=== PATIENT | male | born 1960 | race Caucasian/White ===

== ENCOUNTER 2019-10-27 09:19 | Emergency (ER) | payer BC ==
[2019-10-27 09:37] VITALS: BP 148/72
--- NOTE | 2019-10-27 09:46 | UC ---
Throat Pain/Nasal Teo HPI - HPI Summary HPI Summary: 59-year-old male who has had head congestion and cold symptoms for greater than 1 week. He states yesterday and today he's had increased sinus pressure, postnasal drainage and increasing congestion. He denies any fever or chills. - History of Current Complaint Chief Complaint: UCGeneralIllness Stated Complaint: SINUS COMPLAINT Time Seen by Provider: 10/27/19 09:25 Hx Obtained From: Patient Onset/Duration: Gradual Onset Severity: Mild Pain Intensity: 3 Cough: Nonproductive Associated Signs & Symptoms: Positive: Sinus Discomfort, Nasal Discharge - Allergies/Home Medications Allergies/Adverse Reactions: Allergies Allergy/AdvReac Type Severity Reaction Status Date / Time erythromycin base Allergy Severe Hives Verified 10/27/19 09:35 Home Medications: Home Medications Lovastatin 10 mg PO DAILY 10/27/19 [History Confirmed 10/27/19] PMH/Surg Hx/FS Hx/Imm Hx Previously Healthy: Yes GI/ History: Gastroesophageal Reflux Neurological History: Migraine - Surgical History Surgical History: Yes Surgery Procedure, Year, and Place: [facility]. Hernia repair - Family History Known Family History: Positive: Respiratory Disease Negative: Diabetes - Social History Alcohol Use: Occasionally Substance Use Type: None Smoking Status (MU): Never Smoked Tobacco - Immunization History Most Recent Influenza Vaccination: July 2016 Review of Systems All Other Systems Reviewed And Are Negative: Yes ENT: Positive: Nasal Discharge - Yellowish-green nasal coryza., Sinus Congestion , Sinus Pain/Tenderness Respiratory: Positive: Cough - Occasional nonproductive cough mostly associated with postnasal drainage. Is Patient Immunocompromised?: No Physical Exam Triage Information Reviewed: Yes Appearance: Well-Appearing, No Pain Distress, Well-Nourished Vital Signs: Initial Vital Signs Temp 97.9 F 10/27/19 09:33 Pulse 69 10/27/19 09:33 Resp 16 10/27/19 09:33 BP 148/72 10/27/19 09:33 Pulse Ox 100 10/27/19 09:33 Vital Signs Reviewed: Yes Eyes: Positive: Conjunctiva Clear ENT: Positive: Hearing grossly normal, Pharynx normal - Purulent yellow postnasal drainage., Nasal congestion - Purulent yellow nasal coryza, Nasal drainage, TMs normal, Sinus tenderness - Tender over the left maxillary and frontal sinuses., Uvula midline Neck: Positive: Supple, Nontender, No Lymphadenopathy Respiratory: Positive: Lungs clear, Normal breath sounds, No respiratory distress, No accessory muscle use Cardiovascular: Positive: RRR, No Murmur, Pulses Normal, Brisk Capillary Refill Musculoskeletal Exam: Normal Neurological Exam: Normal Psychological Exam: Normal Skin Exam: Normal Throat Pain/Nasal Course/Dx - Course Course Of Treatment: Patient is comfortable here. I'm going to treat him for a sinus infection with Augmentin. - Differential Dx/Diagnosis Provider Diagnosis: Sinusitis Discharge ED - Sign-Out/Discharge Documenting (check all that apply): Patient Departure All imaging exams completed and their final reports reviewed: No Studies - Discharge Plan Condition: Good Disposition: HOME Prescriptions: Amoxicillin/Clavulanate TAB* [Augmentin TAB 875*] 875 mg PO BID 10 Days #20 tab Patient Education Materials: Sinusitis (ED) Referrals: Lakeisha Bonilla MD [Primary Care Provider] - Additional Instructions: Increase fluids, take the antibiotic with food. Follow-up with your primary care provider in 4 or 5 days if no improvement. - Billing Disposition and Condition Condition: GOOD Disposition: Home
--- OUTSIDE RECORDS SUMMARY | 2019-10-29 15:58 | XMS REPORT | Continuity of Care Document ---
:1960 External Reference #:[id number] Author Name Lakeisha Bonilla MD Address [address] [place] [id number] Problems Active Problems Provider Date Benign essential hypertension Lakeisha Bonilla MD Onset: 01/27/2017 Peptic reflux disease Lakeisha Bonilla MD Onset: 01/27/2017 Gastroesophageal reflux disease Lakeisha Bonilla MD Onset: 07/01/2019 FH: Myocardial infarct in 1st degree male Lakeisha Bonilla MD Onset: 2018 relative <55 years Family history of diabetes mellitus Lakeisha Bonilla MD Onset: 12/28/2018 Benign neoplasm of colon Lakeisha Bonilla MD Onset: 12/28/2018 Mild intermittent asthma Lakeisha Bonilla MD Onset: 12/28/2018 Mixed hyperlipidemia Lakeisha Bonilla MD Onset: 12/28/2018 Social History Type Date Description Comments Sex Unknown ETOH Use Occasionally consumes alcohol Tobacco Use Start: Unknown Patient has never smoked Recreational Drug Use Denies Drug Use Smoking Status Reviewed: 12/28/18 Patient has never smoked Exercise Type/Frequency Exercises regularly running, basketball, hiking, biking; 01/27/17 counselled 150min per week, 18071 steps per day [facility] Allergies, Adverse Reactions, Alerts Active Allergies Reaction Severity Comments Date Erythromycin Hives 01/27/2017 Hay Fever Respiratory 01/27/2017 Dust Respiratory 01/27/2017 Pneumovax Hives and swelling at site 01/27/2017 Medications Active Medications SIG Qnty Indications Ordering Provider Date Naproxen 1 by mouth twice 60tabs G43.111 Lakeisha Bonilla, 10/23/2019 500mg Tablets a day with food Magnesium 1 by mouth every 90tabs G43.111 Sabrina Bonillan, 10/23/2019 400mg Tablets day Vitamin B-2 400mg by mouth 360tabs G43.111 Lakeisha Bonilla, 10/23/2019 100mg daily with food Tablets Lisinopril 1 by mouth daily 30tabs I10 BonillaLakeisha goodman, 10/23/2019 10mg Tablets in the morning Atorvastatin Calcium 1 by mouth every 30tabs E78.2 Lakeisha Bonilla, 12/28 day MD 10mg Tablets Aspirin Adult Low 1 by mouth every E78.2 Lakeisha Bonilla, 02/04/2017 Dose day with food 81mg Tablets DR Ga HFA 2 puffs four 1units J45.20 Lakeisha Bonilla, 01/27/2017 times a day as 108(90Base) mcg/Act needed Aerosol Multivitamin Men 1 by mouth every Unknown day Tablets OTC Allergy Meds qd Unknown Immunizations CPT Code Status Date Vaccine Reaction Lot # [id number] Given 07/28/2019 Fluzone Highdose Age 65 And given at work per pt Over Preservative & Antibiotic Free 88819 Given 10/18/2018 Influenza Vac, Quadrivalent, Split, 0.5mL [place] [address] Given 10/27/2017 Tdap (Adacel) Ages 7 And Im inj completed, Pt [id number] Above Only tolerated well 80217 Given 08/21/2017 Influenza Virus Vaccine,Quadrivalent,Split,P reserv Free, 0.5mL,[place] [address] Given 08/01/2016 Influenza Virus Vaccine,Quadrivalent,Split,P reserv Free, 0.5mL,[place] [address] Given 10/03/2009 Pneumococcal 23 Immunization Pt's records Adult Or Immunosuppressed Patient 75877 Given 11/27/1999 Immunization Td 7 Yrs Or Pt's records Older 59294 Given 08/23/1993 Pneumococcal 23 Immunization Pt's records Adult Or Immunosuppressed Patient Q2039 Ordered 08/27/2017 Flu Vaccine NOS Q2039 Refused 07/01/2019 Flu Vaccine NOS will get in fall 47042 Refused 07/01/2019 Shingrix (Shingles) Zoster Vaccine will get at pharmacy HZV, Recombinant, Subunit, Adj Vital Signs Date Vital Result Comment 10/23/2019 11:47am Body Temperature 97.2 F Weight 196.00 lb Heart Rate 61 /min BP Systolic 148 mmHg BP Diastolic 90 mmHg Respiratory Rate 18 /min Height 66.5 inches 5'6.50" O2 % BldC Oximetry 98 % ra BMI (Body Mass Index) 31.2 kg/m2 07/02/2019 3:16pm Body Temperature 97.6 F Weight 186.00 lb Heart Rate 60 /min BP Systolic 120 mmHg BP Diastolic 78 mmHg Respiratory Rate 16 /min Height 66.5 inches 5'6.50" O2 % BldC Oximetry 99 % ra BMI (Body Mass Index) 29.6 kg/m2 Results Test Acquired Date Facility Test Result H/L Range Note Laboratory test finding 10/23/2019 [facility] <pending> CRP (C-Reactive) <pending> Laboratory test 07/02/2019 [facility] Urine Culture Microbiology res 1, 2 finding <SEE NOTE> Urine Microscopic 07/02/2019 [facility] Urine WBC 0.7 [HPF] (0-8) Urine RBC 2.3 [HPF] (0-3) Epithelial Cells NEGATIVE [HPF] (Neg) Bacteria NEGATIVE [HPF] (Neg) Hyaline Casts 4.5 [LPF] (0-5) Comprehensive Met Panel-[facility] 06/27/2019 [facility] Sodium 138 mmol/L 135- 146 3, 4 Potassium 4.3 mmol/L 3.5-5.2 Chloride# 103 mmol/L 97-110 5 Carbon Dioxide 29 mmol/L 24-34 Calcium 9.2 mg/dL 8.5-10.5 6 Glucose 91 mg/dL 70-105 BUN 15 mg/dL 6-26 Creatinine 1.2 mg/dL 0.5-1.4 Total Protein 6.6 g/dL 6.0-8.0 Albumin 4.1 g/dL 3.6-4.9 Globulin 2.5 g/dL 2.0-3.5 A/G Ratio 1.6 Ratio 1.0-2.2 Total Bilirubin 0.7 mg/dL 0.1-1.3 Alkaline Phosphatase 41 U/L 24-140 Alt 15 U/L 3-42 Ast 24 U/L 8-42 Anion Gap 6 mmol/L 5-15 7 Female Egfr 50 Low >60 8 Male Egfr 67 >60 9 Laboratory test finding 06/27/2019 [facility] CPK 230 U/L High 12-199 Lipid 06/27/2019 [facility] Cholesterol 148 mg/dL 50-199 Triglycerides 95 mg/dL 30-200 HDL 55 mg/dL 29-71 10 Chol/ HDL Ratio 2.7 ratio Low 4.0-6.7 VLDL 19 mg/dL 2-29 LDL (Calc) 74 mg/dL 20-99 11 Laboratory test finding 06/27/2019 [facility] PSA 7.290 ng/mL High 0.000- 4.000 12 1 not teated, consider prostatitis 2 Microbiology results SOURCE Clean Catch Midstream FINAL RESULT No growth 3 before vsiit 06/2019 4 Updated reference range on new analyzer 5 Updated reference range on new analyzer 6 Updated reference range 03-27-2019 7 Updated Reference Range 8 Concerning GFR Guidelines for Americans: Normal function or mild renal disease, if clinically at risk: >/= 60 mL/min Moderately decreased: 30-59 Severely decreased: 15-29 Renal failure: <15 There is reduced accuracy above 60ml/min/1.73 m squared, but the numeric value may be clinically useful in the near 60 range 9 Concerning GFR Guidelines: Normal function or mild renal disease, if clinically at risk: >/= 60 mL/min Moderately decreased: 30-59 Severely decreased: 15-29 Renal failure: <15 There is reduced accuracy above 60ml/min/1.73 m squared, but the numeric value may be clinically useful in the near 60 range Glomerular Filtration Rate (GFR) is estimated based on the CKD-EPI equation, which assumes a steady state for creatinine as recommended by the National Kidney Disease Education Program in conjunction with the National Institutes of Health and the National Kidney Foundation. Clinical conditions in which it may be necessary to measure GFR by using clearance methods include extremes of age and body size, severe malnutrition or obesity, diseases of skeletal muscle, paraplegia or quadriplegia, vegetarian diet, rapidly changing kidney function, and calculation of the dose of potentially toxic drugs that are excreted by the kidneys. 10 Per NCEP ATP III Guidelines: Results lower than 40 mg/dL are suggestive of increased risk for coronary artery disease. Results > or = to 60 mg/dL are considered a negative risk factor. 11 Per NCEP ATP III Guidelines: Normal Population <130 Patients with medical conditions: CHD/DM Optimal: <100 Borderline high: 130-159 High: 160-189 Very high: >189 12 Beginning 01/22/07 PSA values assayed at [employer] uses chemiluminescence methodology manufactured by [employer] for use on the DXI analyzer. Values obtained with different assay methods or kits can not be used interchangeably. Serum PSA measurement is not an absolute test for malignancy. The PSA value should be used in conjunction with information available from clinical evaluation and other diagnostic procedures. Procedures Date Code Description Status 01/29/2016 55760333 Colonoscopy Completed Medical Devices Description No Information Available Encounters Type Date Location Provider Dx Diagnosis Office Visit 07/02/2019 [facility] Lakeisha Bonilla MD R97.20 Elevated prostate 3:15p specific antigen [PSA] N40.0 Benign prostatic hyperplasia without lower urinry tract symp K60.0 Acute anal fissure K64.5 Perianal venous thrombosis N43.2 Other hydrocele M65.311 Trigger thumb, RIGHT thumb Z68.29 Body mass index (BMI) 29.0-29.9, adult Office Visit 07/01/2019 2:30p [facility] Lakeisha Bonilla MD M65.311 Trigger thumb, RIGHT thumb I10 Essential (primary) hypertension E78.2 Mixed hyperlipidemia K21.9 Gastro-esophageal reflux disease without esophagitis J45.20 Mild intermittent asthma, uncomplicated R97.20 Elevated prostate specific antigen [PSA] Z68.29 Body mass index (BMI) 29.0-29.9, adult Assessments Date Code Description Provider 10/23/2019 G43.111 Migraine with aura, intractable, with status Lakeisha Bonilla MD migrainosus 10/23/2019 M54.2 Cervicalgia Lakeisha Bonilla MD 10/23/2019 I10 Essential (primary) hypertension Lakeisha Bonilla MD 10/23/2019 E66.9 Obesity, unspecified Lakeisha Bonilla MD 10/23/2019 H61.21 Impacted cerumen, RIGHT ear Lakeisha Bonilla MD 10/23/2019 H83.09 Labyrinthitis, unspecified ear Lakeisha Bonilla MD 10/23/2019 Z68.31 Body mass index (BMI) 31.0-31.9, adult Lakeisha Bonilla MD 10/23/2019 G43.111 Migraine with aura, intractable, with status Schedule, Laboratory migrainosus 10/23/2019 M54.2 Cervicalgia Schedule, Laboratory 07/02/2019 R97.20 Elevated prostate specific antigen [PSA] Lakeisha Bonilla MD 07/02/2019 N40.0 Benign prostatic hyperplasia without lower Lakeisha Bonilla MD urinary tract symptoms 07/02/2019 K60.0 Acute anal fissure Lakeisha Bonilla MD 07/02/2019 K64.5 Perianal venous thrombosis Lakeisha Bonilla MD 07/02/2019 N43.2 Other hydrocele Lakeisha Bonilla MD 07/02/2019 M65.311 Trigger thumb, RIGHT thumb Lakeisha Bonilla MD 07/02/2019 Z68.29 Body mass index (BMI) 29.0-29.9, adult Lakeisha Bonilla MD 07/02/2019 R97.20 Elevated prostate specific antigen [PSA] [facility] 07/01/2019 M65.311 Trigger thumb, RIGHT thumb Lakeisha Bonilla MD 07/01/2019 I10 Essential (primary) hypertension Lakeisha Bonilla MD 07/01/2019 E78.2 Mixed hyperlipidemia Lakeisha Bonilla MD 07/01/2019 K21.9 Gastro-esophageal reflux disease without Lakeisha Bonilla MD esophagitis 07/01/2019 J45.20 Mild intermittent asthma, uncomplicated Lakeisha Bonilla MD 07/01/2019 R97.20 Elevated prostate specific antigen [PSA] Lakeisha Bonilla MD 07/01/2019 Z68.29 Body mass index (BMI) 29.0-29.9, adult Lakeisha Bonilla MD 06/27/2019 I10 Essential (primary) hypertension Lakeisha Bonilla MD 06/27/2019 I10 Essential (primary) hypertension Schedule, Laboratory 06/27/2019 E78.2 Mixed hyperlipidemia Lakeisha Bonilla MD 06/27/2019 E78.2 Mixed hyperlipidemia Schedule, Laboratory 06/27/2019 Z12.5 Encounter for screening for malignant Lakeisha Bonilla MD neoplasm of prostate 06/27/2019 Z12.5 Encounter for screening for malignant Schedule, Laboratory neoplasm of prostate 06/27/2019 I10 Essential (primary) hypertension [facility] 06/27/2019 E78.2 Mixed hyperlipidemia [facility] 06/27/2019 Z12.5 Encounter for screening for malignant [facility] neoplasm of prostate Plan of Treatment Future Appointment(s):11/01/2019 4:15 pm - Lakeisha Bonilla MD at [facility]2019 10:30 am - Schedule, Laboratory at [facility]01/07/2020 3:30 pm - Lakeisha Bonilla MD at [facility]10/23/2019 - Lakeisha Bonilla MDG43.111 Migraine with aura, intractable, with status migrainosusNew Medication:Naproxen 500 mg - 1 by mouth twice a day with foodMagnesium 400 mg - 1 by mouth every dayVitamin B-2 100 mg - 400mg by mouth daily with foodNew Xrays:MRI Brain Without Contrast, Scheduled : 10/28/19[facility] Brain, Scheduled: 10/28/19Comments:migraine, occurring for several days, with no nausea and vomiting, witjh aura, no neurologic deficits on exam, does have right ear pressure, dizziness and HTN diagnosis Recommend check mri of brain and mra of brain to help make sure there is no aneurysm or tumor. check labs to look fo rinfection , inflammation, other causes naproxen 500mg twice daily with food, watch for stomach upset. May take tylenol. Discussed imitrex/sumatriptan, cautioned risks for hot flashes, chest pain, etc , he declines. Recommend magnesium 400-500mg daily ( 2 doses today, then daily) . (watch for diarrhea if takes too much) Recommend B2 400mg daily with food. all with food/meat/protein.seek care for worsening stiff neck,fever, new neuro sxs, worsening dizziness, lack of improvement in 24-48 hours, any new concerns.Follow up:labs today; MRI MRA sarah ; fu 1 week headache and imaging mri /mra and fu htn oc15 ( make sure appt is at least 3 days after imaging please) M54.2 CervicalgiaNew Xrays:MRI Brain Without Contrast, Scheduled: 10/28/19[facility] Brain, Scheduled: 10/28/19I10 Essential (primary) hypertensionNew Medication: Lisinopril 10 mg - 1 by mouth daily in the morningNew Xrays:MRI Brain Without Contrast, Scheduled: 10/28/19[facility] Brain, Scheduled: 10/28/19Comments:bp upincrease to 10mg lisinopril watch the salt intake, avoid alcohol while not feeling well recheckbps and fu , call if bps are regularly over 150/100E66.9 Obesity, unspecifiedComments:continue to work on diet, exercise, weight lossH61.21 Impacted cerumen, RIGHT earH83.09 Labyrinthitis, unspecified earComments:Your presentation is suggests viral labyrinthitis. Please call if headache is peristant, ear pain, fever, or hearing loss develop. Call if sxs lasts > 4 weeks or seem to be severe or do not begin toimprove within 2 weeks. or if there is hearing loss, speech problems or focal neurologic problems tosuggest stroke, to ERFollow up:Followup:. (Follow up)Z68.31 Body mass index (BMI) 31.0-31.9, adultComments:recommend reduced calorie diet and healthy diet and regular exercise to help with weight loss patient continues to work on reduced calorie diet and regular exercise Functional Status Description No Information Available Mental Status Description No Information Available Referrals Refer to Reason for Referral Status Appt Date Scott Gold DR 59 yo psa 7+, and has right hydrocele, bout of Closed perineum pain after a bike ride a few weeks ago, ho right hernia repair. prostate not tender on exam so did not treat for prostatitis faxed 07/02/19 [facility] spoke to patient and he is aware of appt date and time 07/02/19 [facility] [address] [place] [address]/ [address] [address] [phone] Saw Davison MD 59yo with trigger right thumb, turns out xrays show Closed 08/13/2019 an old chip fracture, is surgery indicated? faxed order 07/02/19 [facility] they contact patient and scheduled with patient after referral is received REFERRAL NOT RECIEVED - REFAXING FRANCESCA 07/09 called and spoke to key - she said patient can just call and schedule his appt himself. i left a message on his home phone with this info francesca 07/17 scheduled with office on phone, andLM on patient patients cell phone with date and time of appt, also mailed 07/25/[address] [facility] [address] [place], [place] [address] [phone]
== END 2019-10-27 09:54 | disposition home or self-care (01) ==
LOC: UCCORT 09:19
DX: J32.9 Chronic sinusitis, unspecified (principal); R05 Cough; Z88.1 Allergy status to other antibiotic agents
CPT/HCPCS: 99212; G0463

== ENCOUNTER 2019-12-04 07:06 | Emergency (ER) | payer BC ==
--- OUTSIDE RECORDS SUMMARY | 2019-12-04 07:15 | XMS REPORT | Continuity of Care Document ---
:1960 External Reference #:[id number] Author Name Lakeisha Bonilla MD Address [address] [place] [id number] Problems Active Problems Provider Date Benign essential hypertension Lakeisha Bonilla MD Onset: 01/27/2017 Peptic reflux disease Lakeisha Bonilla MD Onset: 01/27/2017 Migraine without aura, not refractory Lakeisha Bonilla MD Onset: 11/01/2019 Gastroesophageal reflux disease Lakeisha Bonilla MD Onset: [...] hiking, biking; 01/27/17 counselled 150min per week, 75465 steps per day [facility] Allergies, Adverse Reactions, Alerts Active Allergies Reaction Severity Comments Date Erythromycin Hives 01/27/2017 Hay Fever Respiratory 01/27/2017 Dust Respiratory 01/27/2017 Pneumovax Hives and swelling at site 01/27/2017 Medications Active Medications SIG Qnty Indications Ordering Provider Date Amoxicillin/Clavulanat Twice Daily 20tabs J01.90 Unknown 10/27/2019 e Potassium 875-125mg Tablets Naproxen 1 by mouth 60tabs G43.111 Lakeisha Bonilla, 10/23/2019 500mg Tablets twice a day with food Magnesium 1 by mouth 90tabs G43.111 Lakeisha Bonilla, 10/23/2019 400mg Tablets every day G43.009 Vitamin B-2 400mg by mouth 360tabs G43.111 Lakeisha Bonilla MD 10/23/2019 100mg daily with food Tablets G43.009 Lisinopril 1 by mouth daily 30tabs I10 Lakeisha Bonilla MD 10/23/2019 10mg Tablets in the morning Atorvastatin Calcium 1 by mouth every 30tabs E78.2 Lakeisha Bonilla MD 10mg day Tablets Aspirin Adult Low Dose 1 by mouth every E78.2 Lakeisha Bonilla MD 2016 day with food 81mg Tablets DR Sury CARBALLO 2 puffs four 1units J45.20 Lakeisha Bonilla MD 01/27/2017 108(90Base) times a day as mcg/Act Aerosol needed Multivitamin Men 1 by mouth every Unknown Tablets day OTC Allergy Meds qd Unknown Immunizations CPT Code Status Date Vaccine Reaction Lot # [id number] Given 07/28/2019 Fluzone Highdose Age 65 And given at work per pt Over Preservative & Antibiotic Free 70042 Given 10/18/2018 Influenza Vac, Quadrivalent, Split, 0.5mL [place] [address] Given 10/27/2017 Tdap (Adacel) Ages 7 And Im inj completed, Pt [id number] Above Only tolerated well 74996 Given 08/21/2017 Influenza Virus Vaccine,Quadrivalent,Split,P reserv Free, 0.5mL,[place] [address] Given 08/01/2016 Influenza Virus Vaccine,Quadrivalent,Split,P reserv Free, 0.5mL,[place] [address] Given 10/03/2009 Pneumococcal 23 Immunization Pt's records Adult Or Immunosuppressed Patient 74862 Given 11/27/1999 Immunization Td 7 Yrs Or Pt's records Older 26931 Given 08/23/1993 Pneumococcal 23 Immunization Pt's records Adult Or Immunosuppressed Patient Q2039 Ordered 08/27/2017 Flu Vaccine NOS Q2039 Refused 07/01/2019 Flu Vaccine NOS will get in fall [address] Refused 07/01/2019 Shingrix (Shingles) Zoster Vaccine will get at pharmacy HZV, Recombinant, Subunit, Adj Vital Signs Date Vital Result Comment 11/01/2019 4:14pm Body Temperature 96.5 F Weight 193.00 lb Heart Rate 85 /min BP Systolic 130 mmHg BP Diastolic 80 mmHg Height 66.5 inches 5'6.50" O2 % BldC Oximetry 96 % ra BMI (Body Mass Index) 30.7 kg/m2 10/23/2019 11:47am Body Temperature 97.2 F Weight 196.00 lb Heart Rate 61 /min BP Systolic 148 mmHg BP Diastolic 90 mmHg Respiratory Rate 18 /min Height 66.5 inches 5'6.50" O2 % BldC Oximetry 98 % ra BMI (Body Mass Index) 31.2 kg/m2 Results Test Acquired Date Facility Test Result H/L Range Note CBC with Auto Diff-[facility] 10/23/2019 [facility] 7.3 K/uL 4.1-11.0 1 RBC 4.36 M/uL Low 4.60-6.10 2 Hemoglobin 14.1 gm/dL 13.5-18.0 3 Hematocrit 40.3 % Low 41.0-53.0 4 MCV 92.3 fL 80.0-95.0 5 MCH 32.2 pg High 27.0-32.0 6 MCHC 34.9 g/dL 32.0-36.0 7 RDW 13.4 % 10.5-14.5 8 PLT Count 249 K/ul 150-400 9 MPV 7.7 FL 7.1-10.7 Neutrophil 61.6 % 35.0-75.0 10 Lymphocyte 19.6 % 16.0-52.0 11 Monocyte 16.2 % High 0.0-8.0 12 Eosinophil 1.9 % 0.0-5.0 Basophil 0.7 % 0.0-4.0 Abs Neutrophils 4.5 K/uL 1.8-7.7 13 Abs Lymphocytes 1.4 K/uL 1.2-4.8 14 Abs Monocytes 1.2 K/uL High 0.0-0.8 15 Abs Eosinophils 0.1 K/uL 0.0-0.5 16 Abs Basophils 0.1 K/uL 0.0-0.2 17 Comprehensive Met Panel[facility] 10/23/2019 [facility] Sodium 139 mmol/L 135- 146 18 Potassium 4.6 mmol/L 3.5-5.2 Chloride# 103 mmol/L 97-110 19 Carbon Dioxide 29 mmol/L 24-34 Calcium 9.0 mg/dL 8.5-10.5 20 Glucose 102 mg/dL 70-105 BUN 10 mg/dL 6-26 Creatinine 1.1 mg/dL 0.5-1.4 Total Protein 6.6 g/dL 6.0-8.0 Albumin 4.3 g/dL 3.6-4.9 Globulin 2.3 g/dL 2.0-3.5 A/G Ratio 1.9 Ratio 1.0-2.2 Total Bilirubin 0.6 mg/dL 0.1-1.3 Alkaline Phosphatase 55 U/L 24-140 Alt 13 U/L 3-42 Ast 17 U/L 8-42 Anion Gap 7 mmol/L 5-15 21 Female Egfr 54 Low >60 22 Male Egfr 72 >60 23 Laboratory test finding 10/23/2019 [facility] Esr 5 mm/hr 0-15 CRP (C-Reactive) inflammation 0.31 mg/dL 0.00-0.75 Laboratory test 07/02/2019 [facility] Urine Culture Microbiology res 24, 25 finding <SEE NOTE> Urine Microscopic 07/02/2019 [facility] Urine WBC 0.7 [HPF] (0-8) Urine RBC 2.3 [HPF] (0-3) Epithelial Cells NEGATIVE [HPF] (Neg) Bacteria NEGATIVE [HPF] (Neg) Hyaline Casts 4.5 [LPF] (0-5) Comprehensive Met Panel[facility] 06/27/2019 [facility] Sodium 138 mmol/L 135- 146 26, 27 Potassium 4.3 mmol/L 3.5-5.2 Chloride# 103 mmol/L 97-110 28 Carbon Dioxide 29 mmol/L 24-34 Calcium 9.2 mg/dL 8.5-10.5 29 Glucose 91 mg/dL 70-105 BUN 15 mg/dL 6-26 Creatinine 1.2 mg/dL 0.5-1.4 Total Protein 6.6 g/dL 6.0-8.0 Albumin 4.1 g/dL 3.6-4.9 Globulin 2.5 g/dL 2.0-3.5 A/G Ratio 1.6 Ratio 1.0-2.2 Total Bilirubin 0.7 mg/dL 0.1-1.3 Alkaline Phosphatase 41 U/L 24-140 Alt 15 U/L 3-42 Ast 24 U/L 8-42 Anion Gap 6 mmol/L 5-15 30 Female Egfr 50 Low >60 31 Male Egfr 67 >60 32 Laboratory test finding 06/27/2019 [facility] CPK 230 U/L High 12-199 Lipid 06/27/2019 [facility] Cholesterol 148 mg/dL 50-199 Triglycerides 95 mg/dL 30-200 HDL 55 mg/dL 29-71 33 Chol/ HDL Ratio 2.7 ratio Low 4.0-6.7 VLDL 19 mg/dL 2-29 LDL (Calc) 74 mg/dL 20-99 34 Laboratory test finding 06/27/2019 [facility] PSA 7.290 ng/mL High 0.000- 4.000 35 1 Updated Reference Range 09/2019 2 Updated Reference Range 09/2019 3 Updated Reference Range 09/2019 4 Updated Reference Range 09/2019 5 Updated Reference Range 09/2019 6 Updated Reference Range 09/2019 7 Updated Reference range 09/2019 8 Updated Reference range 09/2019 9 Updated Reference Range 09/2019 10 Updated Reference Range 09/2019 11 Updated Reference Range 09/2019 12 Updated Reference Range 09/2019 13 Updated Reference Range 09/2019 14 Updated Reference Range 09/2019 15 Updated Reference Range 09/2019 16 Updated Reference Range 09/2019 17 Updated Reference Range 09/2019 18 Updated reference range on new analyzer 19 Updated reference range on new analyzer 20 Updated reference range 03-27-2019 21 Updated Reference Range 22 Concerning GFR Guidelines for Americans: Normal function or mild renal disease, if clinically at risk: >/= 60 mL/min Moderately decreased: 30-59 Severely decreased: 15-29 Renal failure: <15 There is reduced accuracy above 60ml/min/1.73 m squared, but the numeric value may be clinically useful in the near 60 range 23 Concerning GFR Guidelines: Normal function or mild [...] drugs that are excreted by the kidneys. 24 not teated, consider prostatitis 25 Microbiology results SOURCE Clean Catch Midstream FINAL RESULT No growth 26 before vsiit 06/2019 27 Updated reference range on new analyzer 28 Updated reference range on new analyzer 29 Updated reference range 03-27-2019 30 Updated Reference Range 31 Concerning GFR Guidelines for Americans: Normal function or mild renal disease, if clinically at risk: >/= 60 mL/min Moderately decreased: 30-59 Severely decreased: 15-29 Renal failure: <15 There is reduced accuracy above 60ml/min/1.73 m squared, but the numeric value may be clinically useful in the near 60 range 32 Concerning GFR Guidelines: Normal function or mild [...] drugs that are excreted by the kidneys. 33 Per NCEP ATP III Guidelines: Results lower than 40 mg/dL are suggestive of increased risk for coronary artery disease. Results > or = to 60 mg/dL are considered a negative risk factor. 34 Per NCEP ATP III Guidelines: Normal Population <130 Patients with medical conditions: CHD/DM Optimal: <100 Borderline high: 130-159 High: 160-189 Very high: >189 35 Beginning 01/22/07 PSA values assayed at [facility] [employer] uses chemiluminescence methodology manufactured by [employer] for use on the DXI analyzer. Values obtained with different assay methods or kits can not be used interchangeably. Serum PSA measurement is not an absolute test for malignancy. The PSA value should be used in conjunction with information available from clinical evaluation and other diagnostic procedures. Procedures Date Code Description Status 11/01/2019 61978 Measure Blood Oxygen Level Single Determination Completed 01/29/2016 67025266 Colonoscopy Completed Medical Devices Description No Information Available Encounters Type Date Location Provider Dx Diagnosis Office Visit 10/23/2019 [facility] Lakeisha Bonilla, G43.111 Migraine with aura, 11:30a MD intractable, with status migrainosus M54.2 Cervicalgia I10 Essential (primary) hypertension E66.9 Obesity, unspecified H61.21 Impacted cerumen, RIGHT ear H83.09 Labyrinthitis, unspecified ear Z68.31 Body mass index (BMI) 31.0-31.9, adult Office Visit 07/02/2019 3:15p [facility] Lakeisha Bonilla MD R97.20 Elevated prostate specific antigen [PSA] N40.0 Benign prostatic hyperplasia without lower urinry tract symp K60.0 Acute anal fissure K64.5 Perianal venous thrombosis N43.2 Other hydrocele M65.311 Trigger thumb, RIGHT thumb Z68.29 Body mass index (BMI) 29.0-29.9, adult Office Visit 07/01/2019 2:30p [facility] Lakeisha Bonilla MD M65.311 Trigger thumb, RIGHT thumb I10 Essential (primary) hypertension E78.2 Mixed hyperlipidemia K21.9 Gastro-esophageal reflux disease without esophagitis J45.20 Mild intermittent asthma, uncomplicated R97.20 Elevated prostate specific antigen [PSA] Z68.29 Body mass index (BMI) 29.0-29.9, adult Assessments Date Code Description Provider 11/01/2019 J01.90 Acute sinusitis, unspecified Lakeisha Bonilla MD 11/01/2019 G43.009 Migraine without aura, not intractable, Lakeisha Bonilla MD without status migrainosus 11/01/2019 E66.9 Obesity, unspecified Lakeisha Bonilla MD 11/01/2019 Z68.30 Body mass index (BMI) 30.0-30.9, adult Lakeisha Bonilla MD 10/23/2019 G43.111 Migraine with aura, intractable, with status Lakeisha Bonilla MD migrainosus 10/23/2019 G43.111 Migraine with aura, intractable, with status Lakeisha Bonilla MD migrainosus 10/23/2019 M54.2 Cervicalgia Lakeisha Bonilla MD 10/23/2019 M54.2 Cervicalgia Lakeisha Bonilla MD 10/23/2019 [...] Laboratory migrainosus 10/23/2019 M54.2 Cervicalgia Schedule, Laboratory 10/23/2019 G43.111 Migraine with aura, intractable, with status [facility] migrainosus 10/23/2019 M54.2 Cervicalgia [facility] 07/02/2019 R97.20 Elevated prostate specific antigen [PSA] [...] 07/02/2019 R97.20 Elevated prostate specific antigen [PSA] [facility] 07/01/2019 M65.311 Trigger thumb, RIGHT [...] of prostate 06/27/2019 I10 Essential (primary) hypertension [facility] 06/27/2019 E78.2 Mixed [facility] 06/27/2019 Z12.5 Encounter for screening for malignant [facility] neoplasm of prostate Plan of Treatment Future Appointment(s):01/01/2020 10:30 am - Schedule, Laboratory at [facility]2019 3:30 pm - Laekisha Bonilla MD at [facility]11/01/2019 - Lakeisha Bonilla MDJ01.90 Acute sinusitis, unspecifiedComments:Acute sinusitis diagnosed and treated and sxs are much bettercomplete antibioticsseek care for recurrent symptoms.Follow up:followup as [id number] Migraine without aura, not intractable, without status migrainosusComments:Advised patient of new recommendations to try magnesium gluconate 500mg daily and vit b6 200mg dailyto help with prevention of migraines--he is taking now, see if helps. Discussed risks for missed aneurysm, vascular problem. He will monitor for worsening headache patterns, thunder clap headache ( to ER) and call for concerns. He declines MRI, MRA for now, advised that if wants to do has a window to get this done through 11/28/2019.E66.9 Obesity, unspecifiedComments:continue to work on diet, exercise, weight lossZ68.30 Body mass index (BMI) 30.0-30.9, adultComments :recommend reduced calorie intake, healthy eating and regular exercise for weight reduction Functional Status Description No Information Available Mental [...] appt date and time 07/02/19 [facility] [address] [place] [address]/ [address] [address] [phone] Saw Davison MD 59yo with trigger right [...] time of appt, also mailed 07/25/19 [facility] [address], [place] [address] [phone]
[2019-12-04 07:26] VITALS: BP 126/82
--- NOTE | 2019-12-04 08:16 | UC ---
Ear Complaint HPI - HPI Summary HPI Summary: right ear pain x 2 days pain is 4 out of pain , no radiation nothing makes it better or worse, recent hx of cold sx with cough , stuffy / runny nose no fever, no chills , no change in hearing - History of Current Complaint Chief Complaint: UCEar Stated Complaint: EAR PAIN,CONGESTION Time Seen by Provider: 12/04/19 07:16 Hx Obtained From: Patient Onset/Duration: Gradual Onset, Lasting Days - 2, Still Present Severity Initially: Moderate Severity Currently: Moderate Pain Intensity: 2 Pain Scale Used: 0-10 Numeric Aggravating Factors: Nothing Alleviating Factors: Nothing Associated Signs/Symptoms: Positive: URI Symptoms. Negative: Discharge, Hearing Loss, Foreign Body Sensation, Trauma to Ear, Swelling @ - Allergies/Home Medications Allergies/Adverse Reactions: Allergies Allergy/AdvReac Type Severity Reaction Status Date / Time erythromycin base Allergy Severe Hives Verified 12/04/19 07:26 PMH/Surg Hx/FS Hx/Imm Hx Cardiovascular History: Hypertension Respiratory History: Asthma Neurological History: Migraine - Surgical History Surgical History: Yes Surgery Procedure, Year, and Place: [facility] T &A. Hernia repair - Family History Known Family History: Positive: Respiratory Disease Negative: Diabetes - Social History Alcohol Use: Occasionally Substance Use Type: None Smoking Status (MU): Never Smoked Tobacco - Immunization History Most Recent Influenza Vaccination: July 2016 Review of Systems All Other Systems Reviewed And Are Negative: Yes Is Patient Immunocompromised?: No Physical Exam Triage Information Reviewed: Yes Appearance: Well-Appearing, No Pain Distress, Well-Nourished Vital Signs: Initial Vital Signs Temp 98.3 F 12/04/19 07:22 Pulse 70 12/04/19 07:22 Resp 18 12/04/19 07:22 BP 126/82 12/04/19 07:22 Pulse Ox 100 12/04/19 07:22 Vital Signs Reviewed: Yes Eye Exam: Normal Eyes: Positive: Conjunctiva Clear ENT: Positive: Normal ENT inspection, Hearing grossly normal, Pharynx normal, TMs normal, Other - mild erythema of the right ear canal. Negative: TM bulging , TM dull, TM red Ear Complaint Course/Dx - Differential Dx/Diagnosis Provider Diagnosis: Otitis externa of right ear Discharge ED - Sign-Out/Discharge Documenting (check all that apply): Patient Departure All imaging exams completed and their final reports reviewed: No Studies - Discharge Plan Condition: Stable Disposition: HOME Prescriptions: Neomyc/Polym/HC 1% OTIC SUSP* [Cortisporin Otic Susp 1%*] 4 drop RIGHT EAR TID # 1 btl Patient Education Materials: Otitis Externa (ED) Referrals: Lakeisha Bonilla MD [Primary Care Provider] - - Billing Disposition and Condition Condition: STABLE Disposition: Home
== END 2019-12-04 07:56 | disposition home or self-care (01) ==
LOC: UCCORT 07:06
DX: H60.91 Unspecified otitis externa, right ear (principal); I10 Essential (primary) hypertension; J45.909 Unspecified asthma, uncomplicated; Z88.1 Allergy status to other antibiotic agents
CPT/HCPCS: 99212; G0463